=== PATIENT | male | born 1990 | race Caucasian/White ===

== ENCOUNTER 2016-12-11 14:34 | Emergency (ER) | payer OTHER ==
[~2016-12-11] VITALS: Ht 188 cm; Wt 77.7 kg
[2016-12-11 14:45] VITALS: BP 128/71; PULSE 62; RESP 16; O2SAT 100
--- NOTE | 2016-12-11 15:17 | ED.REPORT ---
HPI-Headache Date of Service Dec 11, 2016 ED Provider: Hector Staley MD A 26 year old male with no pertinent medical history is referred to the ED from Urgent Care due to a headache. The pt was lifting weights five days ago when he felt a shooting pain to the top of his head. He had a severe headache for a minute or two which then faded and returned intermittently throughout the day. He treated this pain with Tylenol and it resolved by the next morning. He did not have any issues until this morning, when the pain returned. At onset, this headache was the worst that he has experienced. The pt denies blurred vision, nausea, vomiting, weakness, numbness, neck pain, difficulty speaking or photophobia. He experienced similar symptoms once several years ago but a CT scan did not reveal a dangerous cause. Nursing Notes Stated Complaint: SENT BY URGENT CARE Chief Complaint: Headache Nursing Notes Reviewed: Yes Allergies: Coded Allergies: No Known Allergies (Unverified , 12/11/16) General Time Seen by MD: 15:00 Chief Complaint Headache Hx Obtained From: Patient Arrived By: Walk-in Sudden in Onset?: Yes Onset Occurred: 5 days ago Symptom Duration: Intermittent Recent Healthcare: No recent hospitalization, Recent doctor visit Similar Sx Previous: Yes Past Medical History Past Medical History none reported Past Surgical History none reported Smoking History Unknown if Ever Smoker Social History Drug Use: THC Other Social History: Good social support Ambulatory Status Independent Review of Systems Review of Systems Note: denies difficulty speaking Constitutional: Denies: Weakness - generalized Eyes: Denies: Blurred bilateral, Photophobia GI: Denies: Nausea, Vomiting Musculoskeletal: Denies: Back pain, Neck pain Skin: Denies Rash Neurologic: Denies: Numbness Complete sys rev & neg: except as marked. Physical Exam Initial Vital Signs Vital Signs (First) Date Time Temp Pulse Resp B/P Pulse Ox O2 Delivery O2 Flow Rate FiO2 12/11/16 14:45 36.8 62 16 128/71 100 Room Air Initial VS: Reviewed General/Constitutional: Awake, Alert Head / Eyes: Atraumatic, Normocephalic, PERRL, EOMI Neck: Atraumatic, Supple, Full range of motion Neurologic: Oriented X3, Speech NL, No motor deficits, No sensory deficits, CN II - XII intact ENT: Atraumatic, Airway patent, Mucous membranes moist Respiratory / Chest: Atraumatic, Breath sounds NL, Breath sounds = bilat, No respiratory distress Cardiovascular: Heart rate NL, Regular rhythm, Heart sounds NL Abdomen: Atraumatic, Soft, Non-tender Skin: Atraumatic, Color NL, No rash, Warm, Dry Psychiatric: Affect NL, Mood NL Back: Atraumatic, Full range of motion Upper Extremity / MS: Atraumatic, Full range of motion Lower Extremity / Pelvis / MS: Atraumatic, Full range of motion Interpretation & Diagnostics CT Head Interpretation IMPRESSION: No acute intracranial disease process. Dictated by: Areli Matson MD, PhD on 12/11/2016 at 16:27 Approved by: Areli Matson MD, PhD on 12/11/2016 at 16:30 Interpretation / Wet Read by: Interpret - Radiologist Re-Eval/Medical Decision Med Decision/Clinical Course 26-year-old male presenting with worst headache of his life [address] head no acute pathology. His headache resolved spontaneously while he was here. No meningeal signs or symptoms to suggest meningitis. Given symptoms resolved and normal CT do not suspect subarachnoid hemorrhage. Discharged home in good condition with return precautions. Re-Evaluation/Progress : Time of Eval: 16:40 )( Patient Status: Condition improved Re-Evaluation/Progress Note: Pt rechecked, who is comfortable. The diagnosis and plan for discharge are discussed. The pt understands and agrees with the plan. All questions are addressed at this time. Counseled Regarding: Diagnosis, Lab results, Need for follow-up, When/why to return to ED Discharge & Departure Impression: Primary Impression: Headache Headache type: unspecified Headache chronicity pattern: acute headache Intractability: not intractable Qualified Code: R51 - Headache Disposition: Home Discharge Condition All VS Reviewed: Yes Condition: Stable Patient Instructions: Acute Headache (ED) Additional Instructions: Your CT scan was reassuring. Return to the emergency department if you develop any new or worsening symptoms including worsening headache, nausea, vomiting, confusion, fever, neck pain, weakness, numbness, tingling, visual changes, speech changes or difficulty swallowing. Thank you for allowing us to be a part of your care. Referrals: [facility] Scribe Attestation Portions of this note were transcribed by Reagan Espinoza. I, Dr. Staley personally performed the history, physical exam and medical decision-making; I reviewed and confirmed the accuracy of the information in the transcribed note. Signed by: Rimma Clayton, 12/11/16 and 9123. copies to: [facility] Hector Staley MD Dec 11, 2016 15:17 REAGAN ESPINOZA Dec 11, 2016 15:48
--- NOTE | 2016-12-11 16:31 | DRSVH ---
PROCEDURE: CT BRAIN WITHOUT CONTRAST ([id number]) INDICATIONS: Headache TECHNIQUE: Noncontrast 4.5 mm thick angled axial sections acquired from the foramen magnum to the vertex, with c oronal reformats. COMPARISON: None. FINDINGS: Image quality: Excellent. CSF spaces: Basal cisterns are patent. No extra-axial fluid collections. Ventricles are normal in size and shape. Brain: No midline shift. No intracranial masses or hemorrhage. Ronquillo-white matter interface is norm al. Skull and face: Calvarium and visualized facial bones are intact, without suspicious lesions. Sinuses: Visualized sinuses and mastoids are clear. IMPRESSION: No acute intracranial disease process. Dictated by: Areli Matson MD, PhD on 12/11/2016 at 16:27 Approved by: Areli Matson MD, PhD on 12/11/2016 at 16:30
== END 2016-12-11 16:51 | disposition home or self-care (01) ==
LOC: SED 14:34
DX: R51 Headache (principal)